=== PATIENT | male | born 1990 | race African-American/Black ===

== ENCOUNTER 2021-08-26 12:10 | Emergency (ER) | payer SELFPAY ==
[2021-08-26] MEDS ORDERED: HYDROcodone/Acetaminophen 5/325 mg Tablet ONE (13:39)
== END 2021-08-26 13:47 | disposition home or self-care (01) ==
LOC: ERS 12:10
DX: S41.101A Unspecified open wound of right upper arm, initial encounter (principal)

== ENCOUNTER 2021-09-13 10:42 | Emergency (ER) | payer SELFPAY | END 2021-09-13 13:13 | disposition left against medical advice (07) | LOC: ERS 10:42 | DX: Z53.21 Procedure and treatment not carried out due to patient leaving prior to being seen by health care provider (principal) ==

== ENCOUNTER 2023-04-13 07:13 | Emergency (ER) | payer SELFPAY | END 2023-04-13 07:50 | disposition home or self-care (01) | LOC: ERS 07:13 | DX: T78.40XA Allergy, unspecified, initial encounter (principal) | CPT/HCPCS: 99283 ==